=== PATIENT | male | born 1985 | race Two or more races ===

== ENCOUNTER 2017-07-21 09:43 | Emergency (ER) | payer OTHER ==
[~2017-07-21] VITALS: Ht 185.4 cm; Wt 87.3 kg
[2017-07-21 09:57] VITALS: BP 117/53
--- NOTE | 2017-07-21 10:14 | NUR ---
PATIENT TO OF1 AT THIS TIME
--- NOTE | 2017-07-21 10:17 | NUR ---
PATIENT PRESENTS TO ED FOR MEDICATION REFILL . PT STATES HE RAN OUT OF HIS LEXAPRO AND WAS UNABLE TO OBTAIN APPT W/PCP . DENIES N/V/D; SKIN IS PINK/WARM/DRY; AAOX4 WITH EVEN AND STEADY GAIT; LUNGS CLEAR BL; HR EVEN AND REGULAR; PT DENIES ANY FEVER, CP, SOB, OR COUGH AT THIS TIME; PATIENT STATES PAIN OF 0/10 AT THIS TIME; VSS; PATIENT POSITIONED IN OVERFLOW. ER M.D. AWARE OF PT STATUS.
[2017-07-21 10:35] VITALS: BP 117/53
--- NOTE | 2017-07-21 10:35 | NUR ---
Patient discharged with v/s stable. Written and verbal after care instructions given and explained. Patient alert, oriented and verbalized understanding of instructions. Ambulatory with steady gait. All questions addressed prior to discharge. ID band removed. Patient advised to follow up with PMD. Rx of LEXAPRO 10MG 1 PO QD given. Patient educated on indication of medication including possible reaction and side effects. Opportunity to ask questions provided and answered.
== END 2017-07-21 10:35 | disposition home or self-care (01) ==
LOC: MED 09:43
DX: Z76.0 Encounter for issue of repeat prescription (principal); F41.9 Anxiety disorder, unspecified
CPT/HCPCS: 99283